=== PATIENT | female | born 1935 | race Caucasian/White ===

== ENCOUNTER 2016-07-04 13:52 | Inpatient (IN) | payer MEDICARE, OTHER ==
[~2016-07-04] VITALS: Ht 165.1 cm; Wt 43.3 kg
[~2016-07-04 13:52] MED LIST: ALPR-475 PO; BUSP10TA PO; CILO50TA9 PO; MEMA5TAB PO; METF500T4 PO; RISP0.5T3 PO; TEMA15CA PO
[2016-07-04] MEDS ORDERED: SODIUM CHLORIDE FLUSH 10ML SYR IVF ONE (15:30)
[2016-07-04 16:24] LABS: BLOOD UREA NITROGEN 22 mg/dL (7-18)
[2016-07-04] MEDS ORDERED: MIDAZOLAM 1 MG/ML, 2ML IVPush PRN (16:30)
[2016-07-04] MEDS ORDERED: LIDOCAINE 1%-EPI 1:100K, 20ML SQ ONE (16:30)
[2016-07-04] MEDS ORDERED: MIDAZOLAM 1 MG/ML, 5ML ONE (16:36)
[2016-07-04] MEDS ORDERED: morphine SULFATE 10 MG/ML, 1ML ONE (16:36)
[2016-07-04] MEDS: MORPHINE SULFATE 4 MG/ML, 1ML IVPush PRN (17:48)
[2016-07-04] MEDS: RISPERIDONE 0.5 MG TABLET PO SCH (21:42)
[2016-07-04] MEDS: BUSPIRONE 10 MG TABLET PO PRN (21:43)
[2016-07-04] MEDS: TEMAZEPAM 15 MG CAPSULE PO SCH (22:00)
[2016-07-05] MEDS: INSULIN ASPART 100 UNITS/ML, PEN SQ-INSULIN SCH ×5 (00:24→21:10)
[2016-07-05] MEDS: OXYcodone/APAP 7.5/325MG TABLET PO PRN ×3 (00:24→14:44)
[2016-07-05 00:48] VITALS: BP 174/96
[2016-07-05] MEDS ORDERED: TRAZODONE 50MG TABLET PO ONE (01:30)
[2016-07-05 06:21] LABS: BLOOD UREA NITROGEN 19 mg/dL (7-18)
[2016-07-05 07:25] VITALS: BP 132/66
[2016-07-05] MEDS: RISPERIDONE 0.5 MG TABLET PO SCH ×2 (10:15→21:09)
[2016-07-05] MEDS: BUSPIRONE 10 MG TABLET PO PRN (10:16)
[2016-07-05 14:27] VITALS: BP 113/63
[2016-07-05 19:01] VITALS: BP 148/76
[2016-07-05] MEDS: TEMAZEPAM 15 MG CAPSULE PO SCH (21:09)
[2016-07-06 02:05] VITALS: BP 124/63
[2016-07-06] MEDS: INSULIN ASPART 100 UNITS/ML, PEN SQ-INSULIN SCH ×4 (07:00→20:19)
[2016-07-06 07:03] VITALS: BP 116/63
[2016-07-06] MEDS: RISPERIDONE 0.5 MG TABLET PO SCH ×2 (09:00→17:59)
[2016-07-06 12:16] VITALS: BP 117/66
[2016-07-06 18:27] VITALS: BP 132/61
[2016-07-06] MEDS: TEMAZEPAM 15 MG CAPSULE PO SCH (20:14)
[2016-07-07 02:20] VITALS: BP 124/61
[2016-07-07 06:27] VITALS: BP 106/63
[2016-07-07] MEDS: INSULIN ASPART 100 UNITS/ML, PEN SQ-INSULIN SCH ×4 (06:42→21:00)
[2016-07-07] MEDS: RISPERIDONE 0.5 MG TABLET PO SCH ×3 (09:44→21:13)
[2016-07-07 12:37] VITALS: BP 115/64
[2016-07-07] MEDS: ACETAMINOPHEN 325 MG TABLET PO PRN (13:27)
[2016-07-07 20:13] VITALS: BP 116/62
[2016-07-07] MEDS: TEMAZEPAM 15 MG CAPSULE PO SCH ×2 (21:00→21:13)
[2016-07-07] MEDS: OXYcodone/APAP 7.5/325MG TABLET PO PRN (22:53)
[2016-07-08 02:17] VITALS: BP 97/52
[2016-07-08] MEDS: ACETAMINOPHEN 325 MG TABLET PO PRN (04:48)
[2016-07-08 06:58] VITALS: BP 115/62
[2016-07-08] MEDS: INSULIN ASPART 100 UNITS/ML, PEN SQ-INSULIN SCH ×6 (08:56→21:30)
[2016-07-08] MEDS: RISPERIDONE 0.5 MG TABLET PO SCH ×2 (09:45→22:00)
[2016-07-08] MEDS: POLYETHYLENE GLYCOL 17 GM PACKET PO SCH (09:45)
[2016-07-08] MEDS: BUSPIRONE 10 MG TABLET PO PRN (10:46)
[2016-07-08 14:55] VITALS: BP 127/67
[2016-07-08 19:51] VITALS: BP 115/72
[2016-07-08] MEDS: TEMAZEPAM 15 MG CAPSULE PO SCH (21:23)
[2016-07-09] MEDS ORDERED: OXYC-223 PO (01:05)
[2016-07-09 02:58] VITALS: BP 106/57
[2016-07-09] MEDS: INSULIN ASPART 100 UNITS/ML, PEN SQ-INSULIN SCH ×4 (06:27→21:05)
[2016-07-09 08:33] VITALS: BP 121/63
[2016-07-09 08:39] VITALS: BP 109/63
[2016-07-09] MEDS: POLYETHYLENE GLYCOL 17 GM PACKET PO SCH (09:27)
[2016-07-09] MEDS: RISPERIDONE 0.5 MG TABLET PO SCH ×3 (09:27→21:00)
[2016-07-09] MEDS ORDERED: POLYETHYLENE GLYCOL 17 GM PACKET PO PRN (11:00)
[2016-07-09] MEDS ORDERED: BISACODYL 10 MG SUPP PR PRN (11:00)
[2016-07-09] MEDS ORDERED: DOCUSATE 100 MG CAPSULE PO PRN (11:00)
[2016-07-09 12:40] LABS: TOTAL IRON BINDING CAPACITY 202 mcg/dL (250-450)
[2016-07-09 13:44] VITALS: BP 112/60
[2016-07-09 19:55] VITALS: BP 110/60
[2016-07-09] MEDS: TEMAZEPAM 15 MG CAPSULE PO SCH ×2 (20:54→21:00)
[2016-07-10 01:32] VITALS: BP 133/65
[2016-07-10] MEDS: MORPHINE SULFATE 4 MG/ML, 1ML IVPush PRN ×2 (04:17→04:51)
[2016-07-10 06:03] LABS: BLOOD UREA NITROGEN 30 mg/dL (7-18)
[2016-07-10 07:07] VITALS: BP 103/50
[2016-07-10] MEDS: INSULIN ASPART 100 UNITS/ML, PEN SQ-INSULIN SCH ×4 (07:54→20:35)
[2016-07-10] MEDS: RISPERIDONE 0.5 MG TABLET PO SCH ×2 (08:35→20:31)
[2016-07-10] MEDS: POLYETHYLENE GLYCOL 17 GM PACKET PO SCH (08:38)
[2016-07-10 14:15] VITALS: BP 118/69
[2016-07-10] MEDS: CEFTRIAXONE PMX 1GM/50ML 50 ML IV SCH (17:50)
[2016-07-10] MEDS: OXYcodone/APAP 7.5/325MG TABLET PO PRN (20:31)
[2016-07-10] MEDS: TEMAZEPAM 15 MG CAPSULE PO SCH (20:34)
[2016-07-10 21:00] VITALS: BP 126/60
[2016-07-11] MEDS: OXYcodone/APAP 7.5/325MG TABLET PO PRN ×2 (02:31→09:37)
[2016-07-11 02:40] VITALS: BP 114/66
[2016-07-11 07:37] VITALS: BP 109/62
[2016-07-11] MEDS: INSULIN ASPART 100 UNITS/ML, PEN SQ-INSULIN SCH ×4 (08:00→21:57)
[2016-07-11] MEDS: POLYETHYLENE GLYCOL 17 GM PACKET PO SCH (09:37)
[2016-07-11] MEDS: RISPERIDONE 0.5 MG TABLET PO SCH ×2 (09:37→21:56)
[2016-07-11] MEDS ORDERED: LORazepam 2 MG/ML, 1ML ONE (11:13)
[2016-07-11] MEDS: LORazepam 2 MG/ML, 1ML IVPush PRN (11:17)
[2016-07-11] MEDS ORDERED: NITR50CA PO (13:24)
[2016-07-11 14:47] VITALS: BP 104/65
[2016-07-11] MEDS: CEFTRIAXONE PMX 1GM/50ML 50 ML IV SCH (18:00)
[2016-07-11 21:29] VITALS: BP 110/68
[2016-07-11] MEDS: TEMAZEPAM 15 MG CAPSULE PO SCH (21:56)
[2016-07-11] MEDS: ACETAMINOPHEN 325 MG TABLET PO PRN (23:43)
[2016-07-12] MEDS ORDERED: LORazepam 2 MG/ML, 1ML IVPush ONE
[2016-07-12 02:01] VITALS: BP 110/54
[2016-07-12] MEDS: INSULIN ASPART 100 UNITS/ML, PEN SQ-INSULIN SCH ×4 (07:00→21:00)
[2016-07-12 07:56] VITALS: BP 100/62
[2016-07-12] MEDS: RISPERIDONE 0.5 MG TABLET PO SCH ×2 (09:07→21:38)
[2016-07-12] MEDS: POLYETHYLENE GLYCOL 17 GM PACKET PO SCH (09:07)
[2016-07-12] MEDS: HEPARIN 5,000 UNITS/ML, 1ML SQ SCH ×2 (11:00→23:38)
[2016-07-12 13:12] VITALS: BP 128/72
[2016-07-12] MEDS: ACETAMINOPHEN 325 MG TABLET PO PRN (13:41)
[2016-07-12] MEDS: LORazepam 2 MG/ML, 1ML IVPush PRN (14:15)
[2016-07-12] MEDS: CEFTRIAXONE PMX 1GM/50ML 50 ML IV SCH (18:34)
[2016-07-12 19:37] VITALS: BP 150/91
[2016-07-12] MEDS: TEMAZEPAM 15 MG CAPSULE PO SCH (21:36)
[2016-07-13] VITALS: BP 125/59
[2016-07-13 06:25] VITALS: BP 97/70
[2016-07-13] MEDS: INSULIN ASPART 100 UNITS/ML, PEN SQ-INSULIN SCH ×4 (07:00→21:01)
[2016-07-13] MEDS: POLYETHYLENE GLYCOL 17 GM PACKET PO SCH ×2 (08:31→08:39)
[2016-07-13] MEDS: RISPERIDONE 0.5 MG TABLET PO SCH ×2 (08:32→20:43)
[2016-07-13] MEDS ORDERED: LORazepam 0.5MG TABLET PO PRN (09:00)
[2016-07-13] MEDS: LORazepam 2 MG/ML, 1ML IVPush PRN (09:03)
[2016-07-13] MEDS ORDERED: NITROFURANTOIN 50 MG CAPSULE PO SCH (11:00)
[2016-07-13] MEDS: HEPARIN 5,000 UNITS/ML, 1ML SQ SCH ×2 (11:28→21:04)
[2016-07-13 12:26] VITALS: BP 109/61
[2016-07-13] MEDS ORDERED: CEFTRIAXONE PMX 1GM/50ML 50 ML IV SCH (18:00)
[2016-07-13] MEDS: CEFTRIAXONE PMX 1GM/50ML 50 ML IV SCH (18:26)
[2016-07-13 20:41] VITALS: BP 144/68
[2016-07-13] MEDS: TEMAZEPAM 15 MG CAPSULE PO SCH (20:43)
[2016-07-14 01:27] VITALS: BP 126/72
[2016-07-14] MEDS: INSULIN ASPART 100 UNITS/ML, PEN SQ-INSULIN SCH ×4 (06:26→22:27)
[2016-07-14 07:35] VITALS: BP 124/62
[2016-07-14] MEDS: POLYETHYLENE GLYCOL 17 GM PACKET PO SCH (07:57)
[2016-07-14] MEDS: RISPERIDONE 0.5 MG TABLET PO SCH ×2 (08:58→22:27)
[2016-07-14] MEDS: HEPARIN 5,000 UNITS/ML, 1ML SQ SCH ×2 (11:01→22:28)
[2016-07-14 12:18] VITALS: BP 133/63
[2016-07-14] MEDS ORDERED: CITALOPRAM 20 MG TABLET PO ONE (15:06)
[2016-07-14] MEDS: LORazepam 2 MG/ML, 1ML IVPush PRN (17:38)
[2016-07-14] MEDS: CEFTRIAXONE PMX 1GM/50ML 50 ML IV SCH (17:54)
[2016-07-14 20:00] VITALS: BP 123/73
[2016-07-14] MEDS: MELATONIN 3 MG TABLET PO SCH (22:27)
[2016-07-15 02:00] VITALS: BP 124/62
[2016-07-15] MEDS: INSULIN ASPART 100 UNITS/ML, PEN SQ-INSULIN SCH ×4 (07:00→21:00)
[2016-07-15 07:32] VITALS: BP 117/65
[2016-07-15] MEDS: RISPERIDONE 0.5 MG TABLET PO SCH ×2 (10:04→21:12)
[2016-07-15] MEDS: CITALOPRAM 20 MG TABLET PO SCH (10:04)
[2016-07-15] MEDS: POLYETHYLENE GLYCOL 17 GM PACKET PO SCH (10:07)
[2016-07-15] MEDS: HEPARIN 5,000 UNITS/ML, 1ML SQ SCH ×2 (11:38→23:45)
[2016-07-15 13:20] VITALS: BP 124/66
[2016-07-15 18:25] VITALS: BP 128/67
[2016-07-15] MEDS: MELATONIN 3 MG TABLET PO SCH (21:12)
[2016-07-16 01:09] VITALS: BP 125/53
[2016-07-16] MEDS: INSULIN ASPART 100 UNITS/ML, PEN SQ-INSULIN SCH ×2 (07:00→11:00)
[2016-07-16 08:29] VITALS: BP 126/63
[2016-07-16] MEDS: POLYETHYLENE GLYCOL 17 GM PACKET PO SCH (09:00)
[2016-07-16] MEDS: RISPERIDONE 0.5 MG TABLET PO SCH (09:39)
[2016-07-16] MEDS: CITALOPRAM 20 MG TABLET PO SCH (09:39)
[2016-07-16] MEDS: HEPARIN 5,000 UNITS/ML, 1ML SQ SCH (12:01)
[2016-07-16] MEDS ORDERED: LORA-445 PO (12:03)
[2016-07-16] MEDS ORDERED: MELA3TAB PO (12:03)
[2016-07-16] MEDS ORDERED: CITA20TA9 PO (12:03)
[2016-07-16] MEDS ORDERED: RISP0.5T3 PO (12:06)
[2016-07-16] MEDS ORDERED: METF500T4 PO (12:06)
[2016-07-16 12:37] VITALS: BP 111/64
== END 2016-07-16 14:46 | DRG 199 ==
LOC: ED 15:49 → EDIP 17:08 → 4NOR 18:13
PROVIDERS: ADMIT Hospitalist; ATTEND Family Medicine
PROC: 0W9930Z Drainage of Right Pleural Cavity with Drainage Device, Percutaneous Approach (ICD-10-PCS; principal; 2016-07-04)
DX: S27.2XXA Traumatic hemopneumothorax, initial encounter (principal); E43 Unspecified severe protein-calorie malnutrition; S22.41XA Multiple fractures of ribs, right side, initial encounter for closed fracture; R64 Cachexia; Z68.1 Body mass index [BMI] 19.9 or less, adult; F02.81 Dementia in other diseases classified elsewhere, unspecified severity, with behavioral disturbance; F05 Delirium due to known physiological condition; J98.11 Atelectasis; N39.0 Urinary tract infection, site not specified; F30.9 Manic episode, unspecified; G30.9 Alzheimer's disease, unspecified; D63.8 Anemia in other chronic diseases classified elsewhere; F41.9 Anxiety disorder, unspecified; B96.20 Unspecified Escherichia coli [E. coli] as the cause of diseases classified elsewhere; B96.89 Other specified bacterial agents as the cause of diseases classified elsewhere; E03.9 Hypothyroidism, unspecified; E11.9 Type 2 diabetes mellitus without complications; E88.09 Other disorders of plasma-protein metabolism, not elsewhere classified; R29.6 Repeated falls; Z96.649 Presence of unspecified artificial hip joint; W18.30XA Fall on same level, unspecified, initial encounter; K59.00 Constipation, unspecified; R13.10 Dysphagia, unspecified; Z79.84 Long term (current) use of oral hypoglycemic drugs; Z79.899 Other long term (current) drug therapy; Z86.72 Personal history of thrombophlebitis; Z91.81 History of falling; Y93.89 Activity, other specified; Y92.89 Other specified places as the place of occurrence of the external cause; Y99.9 Unspecified external cause status
CPT/HCPCS: 36415; 71010; 71020; 80048; 81001; 82040; 82607; 82746; 82962; 83540; 83550; 83735; 84100; 85025; 85610; 85730; 87077; 87086; 87186; 93005; 96374; J0696; J1644; J1815; 92522-GN; J2060

== ENCOUNTER 2016-07-24 10:02 | Emergency (ER) | payer MEDICARE, OTHER ==
[~2016-07-24] VITALS: Ht 170.2 cm; Wt 52.0 kg
[~2016-07-24 10:02] MED LIST changes: +CITA20TA9 PO; +LORA-445 PO; +MELA3TAB PO; +NITR50CA PO; +OXYC-223 PO
[2016-07-24 10:05] VITALS: BP 107/59
[2016-07-24] MEDS ORDERED: LIDOCAINE 1%, 10ML INFIL ONE (11:00)
[2016-07-24] MEDS ORDERED: LIDOCAINE 1%, 20ML ONE (11:29)
== END 2016-07-24 12:50 | disposition home or self-care (01) ==
LOC: ED 12:35
DX: S01.511A Laceration without foreign body of lip, initial encounter (principal); E03.9 Hypothyroidism, unspecified; E11.9 Type 2 diabetes mellitus without complications; W19.XXXA Unspecified fall, initial encounter; Y93.89 Activity, other specified; Y92.009 Unspecified place in unspecified non-institutional (private) residence as the place of occurrence of the external cause; Y99.9 Unspecified external cause status
CPT/HCPCS: 13131; 13151; 70450; 70486; 93005

== ENCOUNTER 2016-08-16 14:04 | Inpatient (IN) | payer MEDICARE, OTHER ==
[~2016-08-16] VITALS: Ht 162.6 cm; Wt 50.8 kg
[2016-08-16] MEDS ORDERED: SODIUM CHLORIDE 0.9% 1,000ML IVBOLUS ONE (14:30)
[2016-08-16] MEDS ORDERED: SODIUM CHLORIDE FLUSH 10ML SYR IVF ONE (14:30)
[2016-08-16 15:34] LABS: ASPARTATE AMINO TRANSFERASE 17 U/L (15-37); BLOOD UREA NITROGEN 14 mg/dL (7-18)
[2016-08-16 15:37] LABS: IS PT STATUS REG ER OR PRE ER? YES
[2016-08-16 17:26] LABS: PATH.CAST-FLAG NOT PRESENT; SPERM-FLAG NOT PRESENT; SRC-FLAG NOT PRESENT; XTAL-FLAG NOT PRESENT; YLC-FLAG NOT PRESENT
[2016-08-16] MEDS: metFORMIN 500 MG TABLET PO SCH (20:58)
[2016-08-16] MEDS: SODIUM CHLORIDE 0.9% 1,000 ML IV SCH (20:58)
[2016-08-16] MEDS: RISPERIDONE 0.5 MG TABLET PO SCH (20:58)
[2016-08-16] MEDS: ENOXAPARIN 40 MG/0.4 ML SQ SCH (20:58)
[2016-08-16] MEDS: BUSPIRONE 10 MG TABLET PO SCH (20:58)
[2016-08-16] MEDS: CEFTRIAXONE 1,000 MG in SODIUM CHLORIDE 0.9% 50 ML IV SCH (20:58)
[2016-08-16 21:15] VITALS: BP 134/71
[2016-08-17 02:00] VITALS: BP 133/64
[2016-08-17 05:17] LABS: BLOOD UREA NITROGEN 14 mg/dL (7-18)
[2016-08-17 05:22] LABS: ASPARTATE AMINO TRANSFERASE 12 U/L (15-37)
[2016-08-17] MEDS: SODIUM CHLORIDE 0.9% 1,000 ML IV SCH (05:52)
[2016-08-17 07:30] VITALS: BP 126/61
[2016-08-17] MEDS: RISPERIDONE 0.5 MG TABLET PO SCH ×2 (09:49→19:57)
[2016-08-17] MEDS: BUSPIRONE 10 MG TABLET PO SCH ×3 (09:49→19:57)
[2016-08-17] MEDS: CITALOPRAM 20 MG TABLET PO SCH (09:49)
[2016-08-17 12:15] VITALS: BP 113/50
[2016-08-17] MEDS: ENOXAPARIN 40 MG/0.4 ML SQ SCH ×3 (18:11→19:58)
[2016-08-17] MEDS: CEFTRIAXONE 1,000 MG in SODIUM CHLORIDE 0.9% 50 ML IV SCH (18:11)
[2016-08-17] MEDS ORDERED: SODIUM CHLORIDE 0.9% 1,000 ML IV SCH (18:30)
[2016-08-17] MEDS: metFORMIN 500 MG TABLET PO SCH (19:57)
[2016-08-17 20:00] VITALS: BP 121/65
[2016-08-18 03:45] VITALS: BP 147/74
[2016-08-18 08:05] VITALS: BP 147/68
[2016-08-18] MEDS: RISPERIDONE 0.5 MG TABLET PO SCH ×2 (10:05→20:53)
[2016-08-18] MEDS: BUSPIRONE 10 MG TABLET PO SCH ×3 (10:05→20:53)
[2016-08-18] MEDS: CITALOPRAM 20 MG TABLET PO SCH (10:05)
[2016-08-18 13:20] VITALS: BP 153/64
[2016-08-18] MEDS: OFLOXACIN OPHTH 0.3%, 5ML EACHEYE SCH ×3 (15:21→20:52)
[2016-08-18] MEDS ORDERED: ZIPRASIDONE 20 MG INJ IM ONE ×2 (17:30→18:30)
[2016-08-18] MEDS: CEFTRIAXONE 1,000 MG in SODIUM CHLORIDE 0.9% 50 ML IV SCH (17:39)
[2016-08-18 18:46] VITALS: BP 146/69
[2016-08-18] MEDS: ENOXAPARIN 40 MG/0.4 ML SQ SCH (20:52)
[2016-08-18] MEDS: metFORMIN 500 MG TABLET PO SCH (20:53)
[2016-08-19 02:00] VITALS: BP 111/52
[2016-08-19] MEDS: OFLOXACIN OPHTH 0.3%, 5ML EACHEYE SCH ×4 (05:05→20:21)
[2016-08-19 08:21] VITALS: BP 114/60
[2016-08-19] MEDS: CITALOPRAM 20 MG TABLET PO SCH (11:22)
[2016-08-19] MEDS: RISPERIDONE 0.5 MG TABLET PO SCH ×2 (11:23→20:22)
[2016-08-19] MEDS: BUSPIRONE 10 MG TABLET PO SCH ×3 (11:23→20:22)
[2016-08-19 14:30] VITALS: BP 120/72
[2016-08-19] MEDS ORDERED: CEFTRIAXONE 1,000 MG in SODIUM CHLORIDE 0.9% 100 ML IV SCH (14:41)
[2016-08-19 18:21] VITALS: BP 109/76
[2016-08-19] MEDS: metFORMIN 500 MG TABLET PO SCH (20:21)
[2016-08-19] MEDS: ENOXAPARIN 40 MG/0.4 ML SQ SCH (20:21)
[2016-08-20 03:30] VITALS: BP 128/73
[2016-08-20] MEDS: OFLOXACIN OPHTH 0.3%, 5ML EACHEYE SCH ×4 (05:55→20:22)
[2016-08-20 07:53] VITALS: BP 118/67
[2016-08-20] MEDS: BUSPIRONE 10 MG TABLET PO SCH ×3 (10:17→20:22)
[2016-08-20] MEDS: CITALOPRAM 20 MG TABLET PO SCH (10:17)
[2016-08-20] MEDS: RISPERIDONE 0.5 MG TABLET PO SCH ×2 (10:17→20:22)
[2016-08-20] MEDS: CEFDINIR 300 MG CAPSULE PO SCH ×2 (13:20→20:22)
[2016-08-20 13:48] VITALS: BP 126/62
[2016-08-20 19:30] VITALS: BP 145/70
[2016-08-20] MEDS: ENOXAPARIN 40 MG/0.4 ML SQ SCH (20:21)
[2016-08-20] MEDS: metFORMIN 500 MG TABLET PO SCH (20:22)
[2016-08-21 03:39] VITALS: BP 109/56
[2016-08-21] MEDS: OFLOXACIN OPHTH 0.3%, 5ML EACHEYE SCH ×2 (05:30→12:05)
[2016-08-21 07:10] VITALS: BP 127/64
[2016-08-21] MEDS: CEFDINIR 300 MG CAPSULE PO SCH (08:13)
[2016-08-21] MEDS: RISPERIDONE 0.5 MG TABLET PO SCH (08:13)
[2016-08-21] MEDS: BUSPIRONE 10 MG TABLET PO SCH (08:13)
[2016-08-21] MEDS: CITALOPRAM 20 MG TABLET PO SCH (08:13)
[2016-08-21] MEDS ORDERED: CEFD300C37 PO (12:42)
[2016-08-21 14:41] VITALS: BP 141/64
== END 2016-08-21 16:29 | disposition hospice, inpatient (51) | DRG 206 ==
LOC: ED 15:12 → EDIP 16:34 → 4EST 18:22 → 4WST 08-19 17:26
PROVIDERS: ADMIT Hospitalist
DX: S22.31XA Fracture of one rib, right side, initial encounter for closed fracture (principal); N39.0 Urinary tract infection, site not specified; E44.0 Moderate protein-calorie malnutrition; S00.81XA Abrasion of other part of head, initial encounter; E03.9 Hypothyroidism, unspecified; F02.80 Dementia in other diseases classified elsewhere, unspecified severity, without behavioral disturbance, psychotic disturbance, mood disturbance, and anxiety; S81.802A Unspecified open wound, left lower leg, initial encounter; Z51.5 Encounter for palliative care; Z66 Do not resuscitate; S00.10XA Contusion of unspecified eyelid and periocular area, initial encounter; Z96.649 Presence of unspecified artificial hip joint; G30.9 Alzheimer's disease, unspecified; F41.9 Anxiety disorder, unspecified; W01.0XXA Fall on same level from slipping, tripping and stumbling without subsequent striking against object, initial encounter; E11.9 Type 2 diabetes mellitus without complications; Y93.89 Activity, other specified; Y92.89 Other specified places as the place of occurrence of the external cause; Z79.84 Long term (current) use of oral hypoglycemic drugs; Z79.899 Other long term (current) drug therapy
CPT/HCPCS: 36415; 70450; 71010; 80053; 81001; 82550; 83605; 83735; 84100; 84443; 84484; 85025; 85610; 87040; 87077; 87086; 87186; 93005; 99285; J0696; J1650; J3486; J7030

== ENCOUNTER 2017-01-16 20:15 | Emergency (ER) | payer OTHER ==
[~2017-01-16] VITALS: Ht 162.6 cm; Wt 56.0 kg
[~2017-01-16 20:15] MED LIST changes: +CEFD300C37 PO; -MELA3TAB PO; +MELA3TAB2 PO; -OXYC-223 PO; +OXYC-306 PO
[2017-01-16] MEDS ORDERED: DIPH,PERTUSS(ACELL),TET VAC/PF 0.5 ML IM-VACC ONE (20:30)
[2017-01-16] MEDS ORDERED: L.E.T SOLUTION TP ONE ×2 (20:30→21:23)
[2017-01-16 20:44] LABS: HEMATOCRIT 33.6 % (34.6-47.8); WHITE BLOOD COUNT 6.8 x10^3/uL (3.4-10)
[2017-01-16 20:55] LABS: BLOOD UREA NITROGEN 21 mg/dL (7-18)
[2017-01-16 21:06] VITALS: BP 120/47
[2017-01-16] MEDS ORDERED: LORazepam 1MG TABLET ONE (21:15)
[2017-01-16] MEDS ORDERED: LIDOCAINE 1%, 20ML ONE (21:16)
[2017-01-16] MEDS ORDERED: LORazepam 1MG TABLET PO ONE (21:30)
== END 2017-01-16 23:23 | disposition home or self-care (01) ==
LOC: ED 21:21
DX: S01.01XA Laceration without foreign body of scalp, initial encounter (principal); S70.02XA Contusion of left hip, initial encounter; W18.39XA Other fall on same level, initial encounter; Y93.89 Activity, other specified; Y92.89 Other specified places as the place of occurrence of the external cause; Y99.8 Other external cause status
CPT/HCPCS: 12001; 36415; 80048; 82040; 85025; 99284; 99285